=== PATIENT | male | born 1990 | race Caucasian/White ===

== ENCOUNTER 2017-04-16 18:19 | Emergency (ER) | payer BC, MEDICAID ==
[2017-04-16 18:40] VITALS: BP 127/86
[2017-04-16] MEDS ORDERED: Bacitracin Oint 1 GM U/D Packet TOP ONE (18:57)
--- NOTE | 2017-04-16 18:59 | EDM.PDOC ---
[id number]: FISH HOOK IN BACK OF HEAD Time Seen by Provider: 04/16/17 18:45 Source of Information: Reports: Patient History Limitations: Reports: No Limitations - History of Present Illness INITIAL COMMENTS - FREE TEXT/NARRATIVE: 27-year-old male with 2 barbs of a fairly large treble hook embedded into the scalp. - Related Data Allergies Allergy/AdvReac Type Severity Reaction Status Date / Time No Known Allergies Allergy Verified 04/16/17 18:40 Home Meds: Home Meds NK [No Known Home Meds] 04/16/17 [History] Past Medical History - Past Surgical History HEENT Surgical History: Reports: Oral Surgery, Tonsillectomy Social & Family History - Tobacco Use Smoking Status *Q: Current Every Day Smoker Years of Tobacco use: 1 Packs/Tins Daily: 1 ED ROS GENERAL - Review of Systems Review Of Systems: ROS reveals no pertinent complaints other than HPI. ED EXAM, SKIN/RASH Exam: See Below Exam Limited By: No Limitations General Appearance: Alert, No Apparent Distress Head: Other (Patient has 2 barbs of a large trouble hook embedded into the right parietal scalp) Respiratory/Chest: No Respiratory Distress Neurological: Alert, Oriented Psychiatric: Normal Affect, Normal Mood Course - Vital Signs Last Recorded V/S: Last Vital Signs Temp 97.7 F 04/16/17 18:44 Pulse 83 04/16/17 18:44 Resp 16 04/16/17 18:44 BP 127/86 04/16/17 18:44 Pulse Ox 100 04/16/17 18:44 - Orders/Labs/Meds Meds: Medications Discontinued Medications Generic Name Dose Route Start Last Admin Trade Name Dee PRN Reason Stop Dose Admin Bacitracin 1 dose 04/16/17 18:57 04/16/17 19:12 Bacitracin Oint 1 Gm TOP 04/16/17 18:58 1 dose ONETIME ONE Administration Lidocaine HCl 5 ml 04/16/17 18:45 04/16/17 18:47 Xylocaine-Mpf 1% INJECT 04/16/17 18:46 5 ml ONETIME ONE Administration - Re-Assessments/Exams Free Text/Narrative Re-Assessment/Exam: 04/16/17 23:28 1% lidocaine was used to inject the area, and the treble hook was removed backwards through the original penetration holes. There was some brisk bleeding which was controlled. Topical bacitracin was applied and a dressing, patient is to keep the area clean while healing. Departure - Departure Time of Disposition: 19:13 Disposition: Home, Self-Care 01 Condition: good Clinical Impression: Foreign body head Qualifiers: Encounter type: initial encounter Qualified Code(s): S00.95XA - Superficial foreign body of unspecified part of head, initial encounter - Discharge Information Instructions: Puncture Wound, [id number] Referrals: PCP,None [Primary Care Provider] - Forms: ED Department Discharge Care Plan Goals: Keep wound clean while healing. Return if concerns of not healing satisfactorily or infection.
== END 2017-04-16 19:13 | disposition home or self-care (01) ==
LOC: JP.ED 18:19
DX: S00.05XA Superficial foreign body of scalp, initial encounter (principal); F17.210 Nicotine dependence, cigarettes, uncomplicated; Z98.890 Other specified postprocedural states; W45.8XXA Other foreign body or object entering through skin, initial encounter
CPT/HCPCS: 99282; 99283